=== PATIENT | male | born 1955 | race Caucasian/White ===

== ENCOUNTER 2019-02-25 19:13 | Inpatient (IN) | payer OTHER ==
[2019-02-25 19:58] LABS: BASO % 0.5 % (0-2.0); EOS % 1.5 % (0-4.5); HEMATOCRIT 44.4 % (35.4-49); HEMOGLOBIN 15.5 GM/dl (11.7-16.9); LYMPH % 18.9 % (8-40); MCH 32.3 pg (25.7-33.7); MCHC 34.9 g/dl (32.0-35.9); MEAN CELL VOLUME 92.5 fl (80-96); MEAN PLT VOLUME 9.7 fl (7.5-11.1); MONO % 11.1 % (3.8-10.2); PLATELET COUNT 158 K/MM3 (134-434); RDW 12.8 % (11.9-15.9); WHITE BLOOD COUNT 7.7 K/mm3 (4.0-10.8)
[2019-02-25 20:06] LABS: ALBUMIN 4.4 g/dl (3.4-5.0); CALCIUM 8.9 mg/dl (8.5-10); CREATININE 0.9 mg/dl (0.55-1.3); POTASSIUM 3.5 mmol/L (3.5-5.1); TOT PROT 6.7 g/dl (6.4-8.2)
[2019-02-25 20:07] LABS: ACTIVATED PTT 58.7 SECONDS (25.2-36.5)
[2019-02-25 20:11] LABS: INR 1.27 (0.82-1.09); PROTHROMBIN TIME (PATIENT) 14.1 SEC (10.2-13.0)
[2019-02-25] MEDS ORDERED: dilTIAZem HCL 50 MG/10 ML - 10 ML VIAL IVPUSH ONE ×3 (20:23→21:28)
[2019-02-25] MEDS ORDERED: dilTIAZem HCL 50 MG/10 ML - 10 ML VIAL ONE (20:30)
[2019-02-25] MEDS ORDERED: METOCLOPRAMIDE HCL 10 MG TABLET (FP) PO ONE (22:25)
[2019-02-25] MEDS ORDERED: METOPROLOL TARTRATE 50 MG TABLET (FP) PO ONE (22:26)
[2019-02-25] MEDS ORDERED: METOPROLOL TARTRATE 50 MG TABLET (FP) ONE (22:27)
[2019-02-25] MEDS ORDERED: SODIUM CHLORIDE 1,000 ML IV STA (23:08)
--- NOTE | 2019-02-25 23:31 | PDOC ---
Documentation entered by Puja Grullon SCRIBE, acting as scribe for Lizzy Angel MD. Lizzy Angel MD: This documentation has been prepared by the Yadi dennison Adrianna, SCRIBE, under my direction and personally reviewed by me in its entirety. I confirm that the documentation accurately reflects all work, treatment, procedures, and medical decision making performed by me. History of Present Illness - General Chief Complaint: Syncope/Near Syncope Stated Complaint: SYNCOPAL EPISODE - History of Present Illness Initial Comments: The patient is a 64 year old male, with no significant PMH, who presents to the ED for evaluation s/p syncope. Patient notes he went to the gym ~1.5 hour prior to arrival, and finished a heavy workout without any acute complaints. He drove home, and notes he suddenly felt lightheaded. He braced himself of the counter in the kitchen, but subsequently passed out and fell for the floor. His at bedside, who witnessed the episode, notes he hit the back of his head when he fell. She notes his body was stiff and tense, and the episode lasted for ~5 seconds. denies any shaking during the episode. While in the ED, the patient endorses some lightheadedness, head and neck pain. Patient notes he feels trembly and his pulse is fast. He reports one episode of syncope when he was 16, but denies any episodes since. Denies SOB, recent travel, recent sickness, fever, chills, nausea, vomit, or diarrhea. Allergies: NKA, NKDA Surgical History: None reported Social History: Denies EtOH, tobacco, or illicit drug use PCP: Dr. Griggs Past History - Past Medical History Allergies/Adverse Reactions: Allergies Allergy/AdvReac Type Severity Reaction Status Date / Time No Known Allergies Allergy Unverified 02/25/19 19:14 Home Medications: Ambulatory Orders NK [No Known Home Medication] 02/25/19 COPD: No Other medical history: TB A CHILD - Psycho Social/Smoking Cessation Hx Smoking History: Never smoked Review of Systems - Review of Systems Comments:: GENERAL/CONSTITUTIONAL: No fever or chills. No weakness. HEAD, EYES, EARS, NOSE AND THROAT: No change in vision. No ear pain or discharge. No sore throat. CARDIOVASCULAR: +Elevated pulse. No chest pain or shortness of breath. RESPIRATORY: No cough, wheezing, or hemoptysis. GASTROINTESTINAL: No nausea, vomiting, diarrhea or constipation. GENITOURINARY: No dysuria, frequency, or change in urination. MUSCULOSKELETAL: +Occipital head pain 2/2 fall. +Neck pain 2/2 fall. No joint or muscle swelling. No back pain. SKIN: No rash NEUROLOGIC: +S/p syncope. +LOC. +Lightheaded. +Trembly. No vertigo or change in strength/sensation. ENDOCRINE: No increased thirst. No abnormal weight change. HEMATOLOGIC/LYMPHATIC: No anemia, easy bleeding, or history of blood clots. ALLERGIC/IMMUNOLOGIC: No hives or skin allergy. *Physical Exam - Vital Signs Last Vital Signs Temp Pulse Resp BP Pulse Ox 98.2 F 68 18 92/52 L 98 03/01/19 00:14 03/01/19 00:14 03/01/19 00:14 03/01/19 00:14 02/28/19 21:00 - Physical Exam GENERAL: Awake, alert, and fully oriented, in no acute distress HEAD: +Mild tenderness to palpation at the occiput of the skull. No external signs of trauma EYES: PERRLA, EOMI, sclera anicteric, conjunctiva clear ENT: Auricles normal inspection, hearing grossly normal, nares patent. Moist mucosa NECK: Normal ROM, supple, no lymphadenopathy, JVD, or masses LUNGS: Breath sounds equal, clear to auscultation bilaterally. No wheezes, and no crackles HEART: +irregularly irregular. Normal S1 and S2, no murmurs, rubs or gallops ABDOMEN: Soft, nontender, normoactive bowel sounds. No guarding, no rebound. No masses EXTREMITIES: Normal range of motion, no edema. No erythema or tenderness. DP/PT pulses 2+ and symmetric. Warm and well perfused. NEUROLOGICAL: Moves all extremities. Normal speech, normal gait SKIN: Warm, Dry, normal turgor, no rashes or lesions noted. ED Treatment Course - LABORATORY CBC & Chemistry Diagram: 02/27/19 06:57 02/27/19 06:57 - ADDITIONAL ORDERS Additional order review: 02/25/19 19:42 RBC 4.80 MCV 92.5 MCHC 34.9 RDW 12.8 MPV 9.7 Neutrophils % 68.0 Lymphocytes % 18.9 Monocytes % 11.1 H Eosinophils % 1.5 Basophils % 0.5 - RADIOLOGY Radiology Studies Ordered: Category Date Time Status CERVICAL SPINE CT W/O CONTR [CT] Stat CT Scan 02/25/19 19:[address] WITHOUT CONTRAST [CT] Stat CT Scan 02/25/19 19:48 Completed CHEST X-RAY PORTABLE* [RAD] Stat Radiology 02/25/19 19:40 Completed - Medications Given in the ED: ED Medications Discontinued Medications Generic Name Dose Route Start Last Admin Trade Name Freq PRN Reason Stop Dose Admin Aspirin 81 mg 02/26/19 14:30 02/28/19 09:35 Ecotrin - PO 81 mg DAILY DARWIN Administration Diltiazem HCl 10 mg 02/25/19 20:23 02/25/19 20:43 Cardizem Injection - IVPUSH 02/25/19 20:24 Not Given ONCE ONE Diltiazem HCl 20 mg 02/25/19 20:26 02/25/19 20:39 Cardizem Injection - IVPUSH 02/25/19 20:27 20 mg ONCE ONE Administration Diltiazem HCl 20 mg 02/25/19 21:28 02/25/19 21:33 Cardizem Injection - IVPUSH 02/25/19 21:29 20 mg ONCE ONE Administration Enoxaparin Sodium 75 mg 02/26/19 12:09 02/26/19 12:28 Lovenox - SQ 02/26/19 12:10 75 mg ONCE ONE Administration Enoxaparin Sodium 40 mg 02/27/19 10:00 02/28/19 09:35 Lovenox - SQ 40 mg DAILY DARWIN Administration Heparin Sodium (Porcine) 5,000 unit 02/26/19 10:00 02/26/19 09:05 Heparin - SQ 5,000 unit BID DARWIN Administration Sodium Chloride 1,000 mls @ 1,000 mls/hr 02/25/19 23:08 02/25/19 21:00 Normal Saline - IV 02/26/19 00:07 1,000 mls/hr ASDIR STA Administration Sodium Chloride 1,000 mls @ 60 mls/hr 02/26/19 07:15 02/27/19 10:13 Normal Saline - IV Not Given ASDIR DARWIN Metoclopramide HCl 50 mg 02/25/19 22:25 02/25/19 22:27 Reglan - PO 02/25/19 22:26 Not Given ONCE ONE Metoprolol Succinate 25 mg 02/26/19 11:30 02/26/19 11:42 Toprol Xl - PO 25 mg DAILY DARWIN Administration Metoprolol Succinate 25 mg 02/26/19 12:46 02/26/19 13:06 Toprol Xl - PO 02/26/19 12:47 25 mg ONCE ONE Administration Metoprolol Succinate 50 mg 02/27/19 10:00 02/27/19 10:13 Toprol Xl - PO 50 mg DAILY DARWIN Administration Metoprolol Succinate 25 mg 02/27/19 15:13 02/27/19 16:48 Toprol Xl - PO 02/27/19 15:14 25 mg ONCE STA Administration Metoprolol Succinate 50 mg 02/27/19 22:00 02/28/19 09:35 Toprol Xl - PO 50 mg BID DARWIN Administration Metoprolol Tartrate 50 mg 02/25/19 22:26 02/25/19 22:30 Lopressor - PO 02/25/19 22:27 50 mg ONCE ONE Administration Medical Decision Making - Medical Decision Making 02/25/19 23:02 As noted above, this otherwise healthy 64 y.o.man presents after syncopal episode with lightheadedness but no other significant symptoms. 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
[2019-02-26 00:03] VITALS: BMI 22.1
[2019-02-26] MEDS ORDERED: METOPROLOL TARTRATE 5 MG/5 ML VIAL IVPUSH PRN (01:48)
[2019-02-26] MEDS: SODIUM CHLORIDE 1,000 ML IV SCH (07:41)
[2019-02-26 09:00] LABS: EOS % 0.7 % (0-4.5); HEMATOCRIT 43.1 % (35.4-49); HEMOGLOBIN 14.3 GM/dl (11.7-16.9); LYMPH % 13.4 % (8-40); MCHC 33.2 g/dl (32.0-35.9); MEAN CELL VOLUME 93.2 fl (80-96); MEAN PLT VOLUME 9.4 fl (7.5-11.1); MONO % 12.8 % (3.8-10.2); NEUT % 73.1 % (42.8-82.8); PLATELET COUNT 198 K/MM3 (134-434); RBC 4.63 M/mm3 (4.00-5.60); RDW 12.8 % (11.9-15.9); WHITE BLOOD COUNT 6.6 K/mm3 (4.0-10.8)
--- NOTE | 2019-02-26 09:06 | HP ---
CHIEF COMPLAINT: Syncope PCP: Dr. Griggs HISTORY OF PRESENT ILLNESS: The patient is a 64 year old male, with no significant PMH, who presents to the ED for evaluation s/p syncope. Patient notes he went to the gym 1.5 hour prior to arrival, and finished a heavy workout without any acute complaints. He drove home, and notes he suddenly felt lightheaded. He braced himself of the counter in the kitchen, but subsequently passed out and fell for the floor. His at bedside, who witnessed the episode, notes he hit the back of his head when he fell. She notes his body was stiff and tense, and the episode lasted for 5 seconds. denies any shaking during the episode. While in the ED, the patient endorses some lightheadedness, head and neck pain. Patient notes he feels trembly and his pulse is fast. He reports one episode of syncope when he was 16, but denies any episodes since. 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 No weakness. HEAD, EYES, EARS, NOSE AND THROAT: No change in vision. No ear pain or discharge. No sore throat. CARDIOVASCULAR: irregular Elevated pulse. No chest pain or shortness of breath. RESPIRATORY: No cough, wheezing, or hemoptysis. GASTROINTESTINAL: No nausea, vomiting, diarrhea or constipation. GENITOURINARY: No dysuria, frequency, or change in urination. MUSCULOSKELETAL: Occipital head pain 2/2 fall. Neck pain 2/2 fall. No joint or muscle swelling. No back pain. SKIN: No rash NEUROLOGIC: Denies any lightheadedness or dizziness. No vertigo or change in strength/sensation. ENDOCRINE: No increased thirst. No abnormal weight change. HEMATOLOGIC/LYMPHATIC: No anemia, easy bleeding, or history of blood clots. ALLERGIC/IMMUNOLOGIC: No hives or skin allergy. PHYSICAL EXAMINATION Vital Signs - 24 hr 02/25/19 02/25/19 02/25/19 19:17 19:59 20:30 Temperature 98.1 F Pulse Rate 136 H Pulse Rate [ 133 H 160 H Apical] Respiratory 16 20 Rate Blood Pressure 161/78 Blood Pressure 154/98 129/94 [Arm] O2 Sat by Pulse 99 98 Oximetry (%) 02/25/19 02/25/19 02/25/19 21:20 22:00 23:00 Temperature Pulse Rate Pulse Rate [ 115 H 123 H 107 H Apical] Respiratory 17 15 Rate Blood Pressure Blood Pressure 136/82 141/78 113/83 [Arm] O2 Sat by Pulse 96 Oximetry (%) 02/25/19 02/26/19 02/26/19 23:50 03:14 06:00 Temperature 98.4 F 98.0 F Pulse Rate 79 76 Pulse Rate [ Apical] Respiratory 20 19 19 Rate Blood Pressure 106/67 99/57 L Blood Pressure [Arm] O2 Sat by Pulse Oximetry (%) GENERAL: Awake, alert, and fully oriented, in no acute distress HEAD: +Mild tenderness to palpation at the occiput of the skull. No external signs of trauma EYES: PERRLA, EOMI, sclera anicteric, conjunctiva clear ENT: Auricles normal inspection, hearing grossly normal, nares patent. Moist mucosa NECK: Normal ROM, supple, no lymphadenopathy, JVD, or masses LUNGS: Breath sounds equal, clear to auscultation bilaterally. No wheezes, and no crackles HEART: irregular. Normal S1 and S2, no murmurs, rubs or gallops ABDOMEN: Soft, nontender, normoactive bowel sounds. No guarding, no rebound. No masses EXTREMITIES: Normal range of motion, no edema. No erythema or tenderness. DP/PT pulses 2+ and symmetric. Warm and well perfused. NEUROLOGICAL: Moves all extremities. Normal speech, normal gait SKIN: Warm, Dry, normal turgor, no rashes or lesions noted. Laboratory Results - last 24 hr 02/25/19 02/25/19 02/25/19 19:42 19:42 19:42 WBC 7.7 RBC 4.80 Hgb 15.5 Hct 44.4 MCV 92.5 MCH 32.3 MCHC 34.9 RDW 12.8 Plt Count 158 MPV 9.7 Absolute Neuts (auto) 5.4 Neutrophils % 68.0 Lymphocytes % 18.9 Monocytes % 11.1 H Eosinophils % 1.5 Basophils % 0.5 PT with INR 14.1 H INR 1.27 H PTT (Actin FS) 58.7 H Sodium 137 Potassium 3.5 Chloride 103 Carbon Dioxide 25 Anion Gap 9 BUN 31.0 H Creatinine 0.9 Est GFR (CKD-EPI)AfAm 104.24 Est GFR (CKD-EPI)NonAf 89.94 Random Glucose 153 H Calcium 8.9 Total Bilirubin 1.0 AST 26 ALT 17 Alkaline Phosphatase 48 Creatine Kinase 138 Troponin I Total Protein 6.7 Albumin 4.4 TSH 2.30 02/25/19 02/26/19 02/26/19 20:11 02:00 02:00 WBC RBC Hgb Hct MCV MCH MCHC RDW Plt Count MPV Absolute Neuts (auto) Neutrophils % Lymphocytes % Monocytes % Eosinophils % Basophils % PT with INR INR PTT (Actin FS) Sodium Potassium Chloride Carbon Dioxide Anion Gap BUN Creatinine Est GFR (CKD-EPI)AfAm Est GFR (CKD-EPI)NonAf Random Glucose Calcium Total Bilirubin AST ALT Alkaline Phosphatase Creatine Kinase Troponin I < 0.03 Cancelled 0.02 Total Protein Albumin TSH ASSESSMENT/PLAN: The patient is a 64 year old male, with no significant PMH, who presented to the ED for evaluation s/p syncope. Admitted and being treated for Syncope and new onset A Fib. Syncope --1 episode after he returned home from a heavy gym workout --troponins negative x3 --ECG-Afib rapid HR, PVC, nonsp ST-Ts --Echo-Will be completed tomorrow (Cardiology Aware) --CT Head: Mild volume loss, and ventricular dilation. No masses or lesion, acute infarct or intracranial hemorrhage are identified. No acute pathology --CT Spine: No gross fracture, subluxation or prevertebral soft tissue swelling --CXR-No Acute Pathology --US carotids-To be completed tomorrow --Thyroid studies-WNL --Afebrile, no leukocytosis, UA negative Atrial Fibrillation --New Diagnosis --Start Metoprolol Succ 50mg PO Daily --Start ASA 81mg PO Daily --Continuous Telemetry --Car Dispatcher Following- Dr. Corona --EKG in AM FEN Fluids: PO intake Electrolytes: replete as indicated Nutrition: Low Sodium diet DVT prophylaxis: Lovenox 40mg Daily, SCDs Dispo: continues to require inpatient care. Full code. Family Medical History Family History: Denies, Unremarkable Visit type - Emergency Visit Emergency Visit: Yes ED Registration Date: 02/25/19 Care time: The patient presented to the Emergency Department on the above date and was hospitalized for further evaluation of their emergent condition. - New Patient This patient is new to me today: Yes Date on this admission: 02/26/19 - Critical Care Critical Care patient: No
--- NOTE | 2019-02-26 09:09 | CON.CARD ---
Consult Consult Specialty:: cardio - History of Present Illness Chief Complaint: fainting History of Present Illness: 64 M here with fainting spell. went to gym at 4:30, spent about 60 min exercising. drank about 30 oz of fluids prior to that, throughout the course of the day. 2 cups coffee per his routine. ate normal lunch. towards the end he pushed himself more than usual with vigorous sta bike exercise. got home around 6 am, walked into kitchen where was cooking, felt dizzy/LH and flushing feeling in head. awoke on floor with over him--she reported LOC lasting about 5 seconds. denies palpitations preceding that, or ever. no cp, sob. never dizzy/presyncope/syncope during exercise. one prior episode of syncope when , while watching video showing surgical incision of abdomen for . hadn't eaten normally that day sees dr chang routinely for annual check-ups--no h/o DM or HTN no HPL denies etoh use FH: sister rhythm issues since 40s, ? type. father 40s from [place] myocarditis. no other known cardiac (or unexplained) deaths, or CMP - Alcohol/Substance Use Hx Alcohol Use: No - Smoking History Smoking history: Never smoked Home Medications - Allergies Allergies/Adverse Reactions: Allergies Allergy/AdvReac Type Severity Reaction Status Date / Time No Known Allergies Allergy Unverified 02/25/19 19:14 - Home Medications Home Medications: Ambulatory Orders NK [No Known Home Medication] 02/25/19 Review of Systems - Review of Systems Constitutional: denies: Chills, Fever Eyes: denies: Eye Pain HENT: denies: Nasal Congestion Neck: denies: Stiffness Cardiovascular: denies: Palpitations Respiratory: denies: Orthopnea, PND Gastrointestinal: denies: Diarrhea, Rectal Bleeding Genitourinary: denies: Burning, Hematuria Musculoskeletal: denies: Muscle Pain Integumentary: denies: Rash Neurological: reports: Syncope. denies: Numbness, Seizure Endocrine: denies: Excessive Sweating Hematology/Lymphatic: denies: Excessive Bleeding Vital Signs: Vital Signs Temperature 98.0 F 02/26/19 06:00 Pulse Rate 76 02/26/19 06:00 Respiratory Rate 19 02/26/19 06:00 Blood Pressure 99/57 L 02/26/19 06:00 O2 Sat by Pulse Oximetry (%) 96 02/25/19 21:20 Constitutional: Yes: Well Nourished, No Distress Eyes: No: Sclera Icterus HENT: No: Nasal Congestion Neck: No: Decreased ROM Respiratory: Yes: CTA Bilaterally. No: Accessory Muscle Use, Rales, Wheezes Gastrointestinal: Yes: Normal Bowel Sounds. No: Distention, Hepatomegaly, Palpable Mass, Tenderness Cardiovascular: Yes: Pulse Irregular JVD: No Carotid Bruit: No PMI: Non-Displaced Heart Sounds: Yes: S1, S2. No: Gallop Murmur: No: Systolic Murmur, Diastolic Murmur Musculoskeletal: Yes: Other (No kyphosis) Extremities: No: Cool, Cyanosis Edema: No Peripheral Pulses: 2+ Left Carotid, 2+ Right Carotid, 2+ Left Doralis Pedis, 2+ Right Dorsalis Pedis Integumentary: No: Jaundice Neurological: Yes: Alert, Oriented (x3) Psychiatric: No: Agitated - Other Data Labs, Other Data: CBC, BMP 02/26/19 08:29 INR, PTT INR 1.27 (0.82-1.09) H 02/25/19 19:42 Troponin, BNP 02/25/19 02/26/19 02/26/19 20:11 02:00 02:00 Troponin I < 0.03 Cancelled 0.02 Troponin, BNP 02/25/19 02/26/19 02/26/19 20:11 02:00 02:00 Troponin I < 0.03 Cancelled 0.02 Assessment/Plan ECG: Afib rapid HR, PVC, nonsp ST-Ts (no priors) CXR: clear lungs/pleura tele: AF today ranging 100s-120 bpm syncope: -likely vasovagal event sec to vasodilation post-intense exercise, with suboptimal hydration. prodromal sx's support this as well. pt with known typical vasovagal episode years ago. -prerenal lab picture supportive of this etiology as well -doubt afib itself caused syncope--hemodynamically stable here even with rapid HRs -ECG non-ischemic, trop neg x 2 -echo in AM, tele overnight -f/u CT head (prelim unremarkable, per verbal report from ER) -check orthostatics ? HTN: -bp high initially, ? reactive -currently controlled (receiving metoprolol) afib: -new dx -rapid HR, did not respond to IV diltiazem x 2, good response to metopr tartrate 50 PO overnight--back up to 100s-120 this am. -start metoprolol succinate 50 qd first dose now. -d/w'd pt the risks/benefits of DCCV and rhythm maintenance strategy in asymptomatic, rate-controlled pt--no compelling indication. he wishes to defer for now, and we will reassess for spontaneous conversion to sinus in office within next 3 wks -CHADS VASC 0--no AC. will start aspirin 81. pt understands to f/u with me as we will need to re-consider risks/benefits of NOAC once he turns 65 late this year. -check echo
[2019-02-26 09:20] LABS: CALCIUM 8.5 mg/dl (8.5-10); MAGNESIUM 2.1 mg/dL (1.8-2.4); PHOSPHOROUS 3.2 mg/dl (2.5-4.9); POTASSIUM 4.4 mmol/L (3.5-5.1)
[2019-02-26] MEDS ORDERED: HEPARIN NA (PORCINE) 5,000 UNITS/ML 1ML VIAL SQ SCH (10:00)
[2019-02-26] MEDS ORDERED: metoPROLOL SUCCINATE 25 MG TAB.SR.24H (FP) PO SCH ×2 (11:30→12:46)
[2019-02-26] MEDS ORDERED: ENOXAPARIN NA (PORCINE) 80 MG/0.8 ML DISP.SYRIN SQ SCH (12:00)
[2019-02-26] MEDS ORDERED: ENOXAPARIN NA (PORCINE) 80 MG/0.8 ML DISP.SYRIN SQ ONE (12:09)
[2019-02-26] MEDS ORDERED: metoPROLOL SUCCINATE 25 MG TAB.SR.24H (FP) PO ONE (12:46)
[2019-02-26] MEDS: ASPIRIN COATED 81 MG TABLET.EC PO SCH (15:43)
--- NOTE | 2019-02-26 17:07 | EKG ---
Test Reason : Blood Pressure : / mmHG Vent. Rate : 090 BPM Atrial Rate : 107 BPM P-R Int : 000 ms QRS Dur : 094 ms QT Int : 356 ms P-R-T Axes : 000 007 -20 degrees QTc Int : 435 ms ATRIAL FIBRILLATION WITH PREMATURE VENTRICULAR OR ABERRANTLY CONDUCTED COMPLEXES ANTERIOR INFARCT , AGE UNDETERMINED ABNORMAL ECG WHEN COMPARED WITH ECG OF 25-FEB-2019 19:30, ATRIAL FIBRILLATION HAS REPLACED SINUS RHYTHM VENT. RATE HAS DECREASED BY 55 BPM T WAVE VARIATION Confirmed by MURPHY PEREYRA MD ([id number]) on 02/26/2019 5:07:06 PM Referred By: SREEKANTH RICHEY Confirmed By:MURPHY PEREYRA MD
--- NOTE | 2019-02-26 17:08 | EKG ---
Test Reason : Blood Pressure : / mmHG Vent. Rate : 145 BPM Atrial Rate : 078 BPM P-R Int : 000 ms QRS Dur : 102 ms QT Int : 274 ms P-R-T Axes : 000 039 -81 degrees QTc Int : 425 ms ATRIAL FIBRILLATION WITH RAPID VENTRICULAR RESPONSE AND WITH OCCASIONAL PREMATURE VENTRICULAR COMPLEXES ABNORMAL ECG NO PREVIOUS ECGS AVAILABLE Confirmed by HAFSA WALKER, MURPHY ([id number]) on 02/26/2019 5:08:21 PM Referred By: FRANCISCA SAUCEDO Confirmed By:MURPHY PREEYRA MD
[2019-02-27 07:56] LABS: BASO % 0.6 % (0-2.0); EOS % 2.8 % (0-4.5); HEMATOCRIT 42.9 % (35.4-49); HEMOGLOBIN 14.1 GM/dl (11.7-16.9); LYMPH % 25.6 % (8-40); MCH 31.1 pg (25.7-33.7); MCHC 32.9 g/dl (32.0-35.9); MEAN CELL VOLUME 94.5 fl (80-96); MEAN PLT VOLUME 9.2 fl (7.5-11.1); MONO % 15.6 % (3.8-10.2); NEUT % 55.4 % (42.8-82.8); PLATELET COUNT 193 K/MM3 (134-434); RBC 4.54 M/mm3 (4.00-5.60); RDW 12.8 % (11.9-15.9); WHITE BLOOD COUNT 5.1 K/mm3 (4.0-10.8)
[2019-02-27 08:13] LABS: ACTIVATED PTT 57.1 SECONDS (25.2-36.5)
[2019-02-27 08:17] LABS: INR 1.23 (0.82-1.09); PROTHROMBIN TIME (PATIENT) 13.7 SEC (10.2-13.0)
[2019-02-27 08:44] LABS: ALBUMIN 3.2 g/dl (3.4-5.0); TOT PROT 5.1 g/dl (6.4-8.2)
[2019-02-27] MEDS ORDERED: metoPROLOL SUCCINATE 25 MG TAB.SR.24H (FP) PO SCH (10:00)
--- NOTE | 2019-02-27 10:08 | EKG ---
Test Reason : Blood Pressure : / mmHG Vent. Rate : 086 BPM Atrial Rate : 067 BPM P-R Int : 000 ms QRS Dur : 092 ms QT Int : 384 ms P-R-T Axes : 000 007 -06 degrees QTc Int : 459 ms ATRIAL FIBRILLATION WITH PREMATURE VENTRICULAR OR ABERRANTLY CONDUCTED COMPLEXES ANTERIOR INFARCT (CITED ON OR BEFORE 26-FEB-2019) ABNORMAL ECG WHEN COMPARED WITH ECG OF 26-FEB-2019 11:13, NO SIGNIFICANT CHANGE WAS FOUND Confirmed by MURPHY PEREYRA MD ([id number]) on 02/27/2019 10:08:17 AM Referred By: MICKEY Confirmed By:MURPHY PEREYRA MD
[2019-02-27] MEDS: ENOXAPARIN NA (PORCINE) 40 MG/0.4 ML DISP.SYRIN SQ SCH (10:13)
[2019-02-27] MEDS: SODIUM CHLORIDE 1,000 ML IV SCH (10:13)
[2019-02-27] MEDS: ASPIRIN COATED 81 MG TABLET.EC PO SCH (10:13)
--- NOTE | 2019-02-27 12:48 | PN ---
Documentation entered by Hoa Irwin SCRIBE, acting as scribe for Georgette Garcia NP. Physical Exam: SUBJECTIVE: Patient seen and examined at bedside. Patient states having an irregular heart throughout his adulthood. Denies any chest pain or SOB. OBJECTIVE: Vital Signs Period Temp Pulse Resp BP Sys/Cantor Pulse Ox Last 24 Hr 97.6 F-98.8 F 68-97 17-20 95-123/53-77 95-99 GENERAL: Awake, alert, and fully oriented, in no acute distress. ENT: Auricles normal inspection, hearing grossly normal, nares patent. Moist mucosa LUNGS: Breath sounds equal, clear to auscultation bilaterally. No wheezes, and no crackles HEART: Irregular, S1, S2 ABDOMEN: Soft, nontender, normoactive bowel sounds. No guarding, no rebound. No masses NEUROLOGICAL: Moves all extremities. Normal speech, normal gait SKIN: Warm, Dry, normal turgor, no rashes or lesions noted. Laboratory Results - last 24 hr 02/26/19 02/26/19 02/26/19 08:29 08:29 08:29 WBC RBC Hgb Hct MCV MCH MCHC RDW Plt Count MPV Absolute Neuts (auto) Neutrophils % Lymphocytes % Monocytes % Eosinophils % Basophils % PT with INR INR PTT (Actin FS) Sodium 139 Potassium 4.4 Chloride 107 Carbon Dioxide 24 Anion Gap 8 BUN 27.0 H Creatinine 1.0 Est GFR (CKD-EPI)AfAm 91.78 Est GFR (CKD-EPI)NonAf 79.19 Random Glucose 114 H Hemoglobin A1c % 5.6 Calcium 8.5 Phosphorus 3.2 Magnesium 2.1 Total Bilirubin AST ALT Alkaline Phosphatase Troponin I 0.02 Cancelled Total Protein Albumin Triglycerides 32 Cholesterol 118 Total LDL Cholesterol 47 HDL Cholesterol 65 H TSH 1.44 D 02/27/19 02/27/19 02/27/19 06:57 06:57 06:57 WBC 5.1 RBC 4.54 Hgb 14.1 Hct 42.9 MCV 94.5 MCH 31.1 MCHC 32.9 RDW 12.8 Plt Count 193 MPV 9.2 Absolute Neuts (auto) 2.9 Neutrophils % 55.4 D Lymphocytes % 25.6 D Monocytes % 15.6 H Eosinophils % 2.8 D Basophils % 0.6 D PT with INR 13.7 H INR 1.23 H PTT (Actin FS) 57.1 H Sodium 140 Potassium 4.0 Chloride 108 H Carbon Dioxide 25 Anion Gap 7 L BUN 18.0 Creatinine 1.0 Est GFR (CKD-EPI)AfAm 91.78 Est GFR (CKD-EPI)NonAf 79.19 Random Glucose 107 H Hemoglobin A1c % Calcium 8.0 L Phosphorus Magnesium Total Bilirubin 1.0 AST 20 ALT 18 Alkaline Phosphatase 37 L D Troponin I Total Protein 5.1 L Albumin 3.2 L Triglycerides Cholesterol Total LDL Cholesterol HDL Cholesterol TSH Active Medications Generic Name Dose Route Start Last Admin Trade Name Alice PRN Reason Stop Dose Admin Aspirin 81 mg 02/26/19 14:30 02/27/19 10:13 Ecotrin - PO 81 mg DAILY [facility]WIN Administration Enoxaparin Sodium 40 mg 02/27/19 10:00 02/27/19 10:13 Lovenox - SQ 40 mg DAILY [facility]WIN Administration Metoprolol Succinate 50 mg 02/27/19 10:00 02/27/19 10:13 Toprol Xl - PO 50 mg DAILY [facility]WIN Administration ASSESSMENT/PLAN: The patient is a 64 year-old male, with no significant PMH, who presented to the ED for evaluation s/p syncope. Admitted and being treated for syncope and newly diagnosed afib. Syncope --1 episode after he returned home from a heavy gym workout --troponins negative x3 --ECG: no signs of acute ischemic event --CT head and c-spine: no acute pathology --CXR: unremarkable --US carotids: no hemodynamically significant stenosis --TSH wnl --check orthostatics --Echo today Atrial Fibrillation with RVR --rate still occasionally elevated, up to 140-low 150s with exertion --continue ToprolXL 50mg daily, discuss with cardiology to increase to BID --continue telemetry --[id number] score 0: ASA 81mg only FEN Fluids: PO intake Electrolytes: replete as indicated Nutrition: Low Sodium diet DVT prophylaxis: subq lovenox Dispo: continues to require inpatient care. Full code. Visit type - Emergency Visit Emergency Visit: Yes ED Registration Date: 02/25/19 Care time: The patient presented to the Emergency Department on the above date and was hospitalized for further evaluation of their emergent condition. - New Patient This patient is new to me today: Yes Date on this admission: 02/27/19 - Critical Care Critical Care patient: No Georgette Garcia, SCOTTY: This documentation has been prepared by the Dc dennison Maria, SCRIBE, under my direction and personally reviewed by me in its entirety. I confirm that the documentation accurately reflects all work, treatment, procedures, and medical decision making performed by me.
[2019-02-27] MEDS ORDERED: metoPROLOL SUCCINATE 25 MG TAB.SR.24H (FP) PO STA (15:13)
--- NOTE | 2019-02-27 15:16 | ECHO ---
Version: 1 Name: DANIELLE KIMBROUGH Exam: Adult Echocardiogram Study Date: 02/27/2019, 1:15 PM Age: 64 Years MMode/2D Measurements & Calculations IVSd: 1.15 cm LVIDs: 2.9 cm LVIDd: 3.9 cm LVPWd: 1.05 cm LVOT diam: 1.99 cm Ao root diam: 3.1 cm LA dimension: 2.9 cm Doppler Measurements & Calculations MR max P.6 mmHg Ao max P.3 mmHg Ao V2 max: 125.6 cm/sec PI end-d mary: 100.8 cm/sec TR max mary: 206.7 cm/sec TR max P.2 mmHg Procedure A complete two-dimensional transthoracic echocardiogram was performed (2D, M-mode, Doppler and color flow Doppler). The patient was in atrial fibrillation with controlled ventricular rate during the exam. Left Ventricle The left ventricle is normal in size. Left ventricular systolic function is moderately reduced. Ejec tion Fraction = 35-40%. There is moderate global hypokinesis of the left ventricle. Right Ventricle The right ventricle is grossly normal size. The right ventricular systolic function is normal. Atria The left atrial size is normal. Right atrial size is normal. Mitral Valve There is mild mitral valve thickening. There is mild mitral regurgitation. Tricuspid Valve The tricuspid valve is not well visualized, but is grossly normal. There is mild to moderate tricusp id regurgitation. Aortic Valve There is mild aortic sclerosis.;. No aortic regurgitation is present. Pulmonic Valve The pulmonic valve is not well visualized. Mild pulmonic valvular regurgitation. Great Vessels The aortic root is normal size. Pericardium/Pleura There is no pericardial effusion. Summary Statements The left ventricle is normal in size. Left ventricular systolic function is moderately reduced. Ejection Fraction = 35-40%. There is moderate global hypokinesis of the left ventricle. The right ventricular systolic function is normal. The left atrial size is normal. Right atrial size is normal. There is mild mitral valve thickening. There is mild mitral regurgitation. There is mild to moderate tricuspid regurgitation. There is mild aortic sclerosis.; Mild pulmonic valvular regurgitation. There is no pericardial effusion. Abdirahman Alonso MD 02/27/2019, 3:16 PM Ordering Physician: Kat Luis Performed By: Digna Wilkerson
--- NOTE | 2019-02-27 16:29 | PN ---
Progress Note (short form) - Note Progress Note: s: no chest pain, palps, dizziness, dyspnea Current Medications Aspirin (Ecotrin -) 81 mg PO DAILY [facility] Last Admin: 02/27/19 10:13 Dose: 81 mg Enoxaparin Sodium (Lovenox -) 40 mg SQ DAILY [facility] Last Admin: 02/27/19 10:13 Dose: 40 mg Lisinopril (Prinivil) 5 mg PO DAILY [facility] Metoprolol Succinate (Toprol Xl -) 50 mg PO BID [facility] Vital Signs Period Temp Pulse Resp BP Sys/Cantor Pulse Ox Last 24 Hr 97.6 F-98.8 F 75-102 17-20 95-127/53-79 96-99 Constitutional: Yes: Well Nourished, No Distress Eyes: No: Sclera Icterus HENT: No: Nasal Congestion Neck: No: Decreased ROM Respiratory: Yes: CTA Bilaterally. No: Accessory Muscle Use, Rales, Wheezes Gastrointestinal: Yes: Normal Bowel Sounds. No: Distention, Hepatomegaly, Palpable Mass, Tenderness Cardiovascular: Yes: Pulse Irregular JVD: No Carotid Bruit: No PMI: Non-Displaced Heart Sounds: Yes: S1, S2. No: Gallop Murmur: No: Systolic Murmur, Diastolic Murmur Musculoskeletal: Yes: Other (No kyphosis) Extremities: No: Cool, Cyanosis Edema: No Peripheral Pulses: 2+ Left Carotid, 2+ Right Carotid, 2+ Left Doralis Pedis, 2+ Right Dorsalis Pedis Integumentary: No: Jaundice Neurological: Yes: Alert, Oriented (x3) Psychiatric: No: Agitated Assessment/Plan ECG: Afib rapid HR, PVC, nonsp ST-Ts (no priors) CXR: clear lungs/pleura echo 02/2019 moderately reduced LV function EF 35-40%, mod global hypokinesis of LV, RV nl function, mild MR, mild to mod TR, mild IA tele: AF today 90s-100s, episodes 120-150 syncope: -likely vasovagal event sec to vasodilation post-intense exercise, with suboptimal hydration. prodromal sx's support this as well. pt with known typical vasovagal episode years ago. -prerenal lab picture supportive of this etiology as well -doubt afib itself caused syncope--hemodynamically stable here even with rapid HRs -ECG non-ischemic, trop neg x 2 - orthostatics negative - tele with afib episodes of RVR cardiomyopathy - mod reduced LV function on echo here - may be in setting of tachycardia - rate control as below, inc metoprolol to 50 mg BID - add low dose lisinopril, monitor BP ? HTN: -bp high initially, ? reactive -currently controlled (receiving metoprolol) afib: -new dx - HR improving, episodes of RVR - asymptomatic - inc metoprolol succinate to 50 mg BID - per Dr. Corona: d/w'd pt the risks/benefits of DCCV and rhythm maintenance strategy in asymptomatic, rate-controlled pt--no compelling indication. he wishes to defer for now, and we will reassess for spontaneous conversion to sinus in office within next 3 wks -CHADS VASC 0--no AC. will start aspirin 81. pt understands to f/u with Dr Corona to re-consider risks/benefits of NOAC once he turns 65 late this year
--- NOTE | 2019-02-27 16:59 | HOSP ---
Subjective - Review of Symptoms Events since last encounter: 02/27 Echo: afib during exam; LV moderately reduced, EF 35-40%, moderate global hypokinesis; RV normal; mild MR; mild to moderate TR; mild PI Discussed with Dr. Emerson Increasing ToprolXL to 50mg BID, starting lisinopril 5mg daily Physical Examination Vital Signs: Vital Signs Temperature 97.9 F 02/27/19 14:23 Pulse Rate 84 02/27/19 14:23 Respiratory Rate 18 02/27/19 14:23 Blood Pressure 120/71 02/27/19 14:23 O2 Sat by Pulse Oximetry (%) 97 02/27/19 14:23 Labs: CBC, BMP 02/27/19 06:57 02/27/19 06:57
--- NOTE | 2019-02-28 09:14 | PN ---
Documentation entered by Hoa Irwin SCRIBE, acting as scribe for Georgette Garcia NP. Physical Exam: SUBJECTIVE: Patient seen and examined at bedside. Pt states he had cold like symptoms Jan.30 with a non-productive cough and runny nose. Additional Family History: Father in his 40s of cardiomyopathy suspected secondary to Coxsackie cardiomyopathy. Pt's half-sister had left ventricular arrhythmic problems since her 40s. She is currently on metoprolol and sotolol. OBJECTIVE: Vital Signs Period Temp Pulse Resp BP Sys/Cantor Pulse Ox Last 24 Hr 97.5 F-98.0 F 70-102 18-20 107-131/66-79 97-98 GENERAL: Awake, alert, and fully oriented, in no acute distress. LUNGS: Breath sounds equal, clear to auscultation bilaterally. No wheezes, and no crackles HEART: Irregular, S1, S2 ABDOMEN: Soft, nontender, normoactive bowel sounds. NEUROLOGICAL: Moves all extremities. Normal speech, normal gait SKIN: Warm, dry, normal turgor, no rashes or lesions noted. Laboratory Results - last 24 hr 02/27/19 02/27/19 02/27/19 06:57 06:57 06:57 WBC 5.1 RBC 4.54 Hgb 14.1 Hct 42.9 MCV 94.5 MCH 31.1 MCHC 32.9 RDW 12.8 Plt Count 193 MPV 9.2 Absolute Neuts (auto) 2.9 Neutrophils % 55.4 D Lymphocytes % 25.6 D Monocytes % 15.6 H Eosinophils % 2.8 D Basophils % 0.6 D PT with INR 13.7 H INR 1.23 H PTT (Actin FS) 57.1 H Sodium 140 Potassium 4.0 Chloride 108 H Carbon Dioxide 25 Anion Gap 7 L BUN 18.0 Creatinine 1.0 Est GFR (CKD-EPI)AfAm 91.78 Est GFR (CKD-EPI)NonAf 79.19 Random Glucose 107 H Calcium 8.0 L Total Bilirubin 1.0 AST 20 ALT 18 Alkaline Phosphatase 37 L D Total Protein 5.1 L Albumin 3.2 L Active Medications Generic Name Dose Route Start Last Admin Trade Name Freq PRN Reason Stop Dose Admin Aspirin 81 mg 02/26/19 14:30 02/27/19 10:13 Ecotrin - PO 81 mg DAILY [facility] Administration Enoxaparin Sodium 40 mg 02/27/19 10:00 02/27/19 10:13 Lovenox - SQ 40 mg DAILY [facility] Administration Lisinopril 5 mg 02/28/19 10:00 Prinivil PO DAILY [facility] Metoprolol Succinate 50 mg 02/27/19 22:00 02/27/19 21:15 Toprol Xl - PO 50 mg BID [facility]WIN Administration ASSESSMENT/PLAN: The patient is a 64 year-old male, with no significant PMH, admitted after a syncopal episode, with newly diagnosed atrial fibrillation. Syncope --1 episode after he returned home from a heavy gym workout --troponins negative x3 --ECG: no signs of acute ischemic event --CT head and c-spine: no acute pathology --CXR: unremarkable --US carotids: no hemodynamically significant stenosis --TSH wnl --not orthostatic Systolic heart failure --02/27 Echo: LV systolic function moderately reduced, EF 35-40%, moderate global hypokinesis; RV normal; mild MR; mild to moderate TR; mild PI Atrial Fibrillation with RVR --rate to 150s, increase ToprolXL to 75mg BID and add diltiazem 30mg PO q6h --[id number] score 0 but with reduced EF, started Eliquis 5mg BID --once rate controled (average rate <100bpm) can discharge home with outpatient follow up with Dr. Corona to discuss options (possible DCCV) --continue telemetry FEN Fluids: PO intake Electrolytes: replete as indicated Nutrition: Low Sodium diet DVT prophylaxis: subq lovenox Dispo: continues to require inpatient care. Full code. Visit type - Emergency Visit Emergency Visit: Yes ED Registration Date: 02/25/19 Care time: The patient presented to the Emergency Department on the above date and was hospitalized for further evaluation of their emergent condition. - New Patient This patient is new to me today: No - Critical Care Critical Care patient: No Georgette Garcia NP: This documentation has been prepared by the Dc dennison Maria, SCRIBE, under my direction and personally reviewed by me in its entirety. I confirm that the documentation accurately reflects all work, treatment, procedures, and medical decision making performed by me.
--- NOTE | 2019-02-28 09:26 | EKG ---
Test Reason : Blood Pressure : / mmHG Vent. Rate : 082 BPM Atrial Rate : 131 BPM P-R Int : 000 ms QRS Dur : 094 ms QT Int : 382 ms P-R-T Axes : 000 005 007 degrees QTc Int : 446 ms ATRIAL FIBRILLATION SEPTAL INFARCT (CITED ON OR BEFORE 26-FEB-2019) ABNORMAL ECG WHEN COMPARED WITH ECG OF 27-FEB-2019 05:53, QUESTIONABLE CHANGE IN INITIAL FORCES OF ANTEROSEPTAL LEADS Confirmed by Luis Manuel Kelley MD ([id number]) on 02/28/2019 9:26:30 AM Referred By: Confirmed By:Luis Manuel Kelley MD
[2019-02-28] MEDS: LISINOPRIL 5 MG TABLET (FP) PO SCH (09:35)
[2019-02-28] MEDS: dilTIAZem HCL 30 MG TABLET (FP) PO SCH ×3 (09:35→17:47)
[2019-02-28] MEDS: ASPIRIN COATED 81 MG TABLET.EC PO SCH (09:35)
[2019-02-28] MEDS: ENOXAPARIN NA (PORCINE) 40 MG/0.4 ML DISP.SYRIN SQ SCH (09:35)
[2019-02-28] MEDS: APIXABAN 5 MG TABLET PO SCH ×2 (12:21→21:31)
--- NOTE | 2019-02-28 13:12 | PN ---
Progress Note, Physician Chief Complaint: EF 35-40% noted NOAC added for reduction in LVEF + AF Diltiazem added today for adjunct rate control as having episodes AF w/ RVR Also has palps every time he drinks cold drinks No CP or SOB, feels light headed when has AF - Current Medication List Current Medications: Active Medications Apixaban (Eliquis -) 5 mg PO BID [facility] Last Admin: 02/28/19 12:21 Dose: 5 mg Diltiazem HCl (Cardizem -) 30 mg PO Q6HPO [facility] Last Admin: 02/28/19 12:21 Dose: 30 mg Lisinopril (Prinivil) 5 mg PO DAILY [facility] Last Admin: 02/28/19 09:35 Dose: 5 mg Metoprolol Succinate (Toprol Xl -) 50 mg PO BID [facility] Last Admin: 02/28/19 09:35 Dose: 50 mg - Objective Vital Signs: Vital Signs Temperature 98.6 F 02/28/19 10:00 Pulse Rate 130 H 02/28/19 10:00 Respiratory Rate 16 02/28/19 10:00 Blood Pressure 118/82 02/28/19 10:00 O2 Sat by Pulse Oximetry (%) 97 02/28/19 06:00 Constitutional: Yes: No Distress Cardiovascular: Yes: Pulse Irregular Respiratory: Yes: CTA Bilaterally Gastrointestinal: Yes: Soft (NT) Edema: No Neurological: Yes: Alert, Oriented Labs: CBC, BMP 02/27/19 06:57 02/27/19 06:57 INR, PTT INR 1.23 (0.82-1.09) H 02/27/19 06:57 Laboratory Tests 02/26/19 08:29 TSH 1.44 D - ....Imaging EKG: Image Reviewed Assessment/Plan syncope: -likely vasovagal event sec to vasodilation post-intense exercise, with suboptimal hydration. prodromal sx's support this as well. pt with known typical vasovagal episode years ago. -prerenal lab picture supportive of this etiology as well -doubt afib itself caused syncope--hemodynamically stable here even with rapid HRs -ECG non-ischemic, trop neg x 2 -echo with RF 35-40%, likely due to AF. Doubt ischemic in nature given unlimited ET and no anginal sx -His father had viral cardiomyopathy -Head Ct negative. -check orthostatics HTN: -bp high initially, ? reactive -currently controlled (receiving metoprolol) -No hx of HTN afib: -new dx although possibly paroxysmal given his reported hx of palps particularly after cold beverages (? vagal mediated) -Started on Cardizem for adjunct rate control, titrate Toprol to 75mg BID -d/w'd pt the risks/benefits of DCCV and rhythm maintenance strategy in asymptomatic, rate-controlled pt--no compelling indication. he wishes to defer for now, and we will reassess for spontaneous conversion to sinus in office within next 3 wks -CHADS VASC 0 but with reduced LVEF to range of 35-40%, started on NOAC, no contraindications. -Once rate controlled (average rate < 100bpm), can discharge home w/ outpt f/u Dr. Corona to discuss options (possible DCCV)
[2019-02-28] MEDS ORDERED: metoPROLOL SUCCINATE 25 MG TAB.SR.24H (FP) PO SCH (22:00)
[2019-03-01] MEDS: dilTIAZem HCL 30 MG TABLET (FP) PO SCH ×2 (00:53→06:58)
[2019-03-01 09:38] LABS: CALCIUM 8.7 mg/dl (8.5-10); POTASSIUM 4.2 mmol/L (3.5-5.1)
[2019-03-01] MEDS: APIXABAN 5 MG TABLET PO SCH ×2 (11:17→21:13)
[2019-03-01] MEDS: LISINOPRIL 5 MG TABLET (FP) PO SCH (11:17)
--- NOTE | 2019-03-01 18:05 | PN ---
Progress Note (short form) - Note Progress Note: s: no cp sob dizzy; less palps today Current Medications Generic Name Dose Route Start Last Admin Trade Name Alice PRN Reason Stop Dose Admin Apixaban 5 mg 02/28/19 11:15 03/01/19 11:17 Eliquis - PO 5 mg BID [facility] Administration Lisinopril 5 mg 02/28/19 10:00 03/01/19 11:17 Prinivil PO 5 mg DAILY [facility] Administration Metoprolol Succinate 50 mg 03/01/19 10:17 Toprol Xl - PO BID [facility] Vital Signs Period Temp Pulse Resp BP Sys/Cantor Pulse Ox Last 24 Hr 97.7 F-98.2 F 68-98 18-19 92-112/52-75 96-98 Constitutional: Yes: No Distress Cardiovascular: Yes: Pulse Irregular Respiratory: Yes: CTA Bilaterally Gastrointestinal: Yes: Soft (NT) Edema: No Neurological: Yes: Alert, Oriented no jaundice diaphoresis Labs: CBC, BMP 02/27/19 06:57 03/01/19 09:15 tele: rate controlled af Assessment/Plan syncope: -likely vasovagal event sec to vasodilation post-intense exercise, with suboptimal hydration. prodromal sx's support this as well. pt with known typical vasovagal episode years ago. -prerenal lab picture supportive of this etiology as well -doubt afib itself caused syncope--hemodynamically stable here even with rapid HRs -ECG non-ischemic, trop neg x 2 -echo with RF 35-40%, likely due to AF. Doubt ischemic in nature given unlimited ET and no anginal sx -Head Ct negative. HTN: -bp nl/low with bb afib: -new dx although possibly paroxysmal given his reported hx of palps particularly after cold beverages (? vagal mediated) -Started on Cardizem for adjunct rate control but bp too low to continue and bb also reduced to toprol 50 bid. Tele today shows hr mostly<100. -d/w'd pt the risks/benefits of DCCV and rhythm maintenance strategy in asymptomatic, rate-controlled pt--no compelling indication. he wishes to defer for now, and we will reassess for spontaneous conversion to sinus in office within next 3 wks -CHADS VASC 0 but with reduced LVEF to range of 35-40%, started on NOAC, no contraindications. -would monitor on tele tonight and if rate remains acceptable then plan for dc tomorrow.
--- NOTE | 2019-03-01 18:58 | PN ---
Documentation entered by Hoa Irwin SCRIBE, acting as scribe for Georgette Garcia NP. Physical Exam: SUBJECTIVE: Patient seen and examined OBJECTIVE: Vital Signs Period Temp Pulse Resp BP Sys/Cantor Pulse Ox Last 24 Hr 97.7 F-98.6 F 68-130 16-19 92-118/52-82 95-98 GENERAL: Awake, alert, and fully oriented, in no acute distress. LUNGS: Breath sounds equal, clear to auscultation bilaterally. No wheezes, and no crackles HEART: Irregular, S1, S2 ABDOMEN: Soft, nontender, normoactive bowel sounds. NEUROLOGICAL: Moves all extremities. Normal speech, normal gait SKIN: Warm, dry, normal turgor, no rashes or lesions noted. Active Medications Generic Name Dose Route Start Last Admin Trade Name Freq PRN Reason Stop Dose Admin Apixaban 5 mg 02/28/19 11:15 02/28/19 21:31 Eliquis - PO 5 mg BID [facility] Administration Diltiazem HCl 30 mg 02/28/19 10:00 03/01/19 06:58 Cardizem - PO Not Given Q6HPO [facility] Lisinopril 5 mg 02/28/19 10:00 02/28/19 09:35 Prinivil PO 5 mg DAILY [facility] Administration Metoprolol Succinate 75 mg 02/28/19 22:00 02/28/19 21:31 Toprol Xl - PO 75 mg BID [facility] Administration ASSESSMENT/PLAN: The patient is a 64 year-old male, with no significant PMH, admitted after a syncopal episode, with newly diagnosed atrial fibrillation. Dropped pressures overnight, SBP <90 but rate remains elevated 140s Decrease ToprolXL to 50mg BID, stop diltiazem Syncope --troponins negative x3 --ECG: no signs of acute ischemic event --CT head and c-spine: no acute pathology --CXR: unremarkable --US carotids: no hemodynamically significant stenosis --TSH wnl --not orthostatic here but syncope occurred after vigorous workout and less than optimal hydration Systolic heart failure --02/27 Echo: LV systolic function moderately reduced, EF 35-40%, moderate global hypokinesis; RV normal; mild MR; mild to moderate TR; mild PI Atrial Fibrillation with RVR --overnight BP dropped to 90s systolic-->diltiazem held and ToprolXL lowered to 50mg BID today --rate today is generally <100 --[id number] score 0 but with reduced EF, continue Eliquis 5mg BID --if rate continues to be generally <100bpm, can discharge home tomorrow with outpatient follow up with Dr. Corona to discuss options (possible DCCV) --continue telemetry FEN Fluids: PO intake Electrolytes: replete as indicated Nutrition: Low Sodium diet DVT prophylaxis: subq lovenox Dispo: continues to require inpatient care. Full code. Visit type - Emergency Visit Emergency Visit: Yes ED Registration Date: 02/25/19 Care time: The patient presented to the Emergency Department on the above date and was hospitalized for further evaluation of their emergent condition. - New Patient This patient is new to me today: No - Critical Care Critical Care patient: No Georgette Garcia, POND SUPERVISOR: This documentation has been prepared by the Dc dennison Maria, SCRIBE, under my direction and personally reviewed by me in its entirety. I confirm that the documentation accurately reflects all work, treatment, procedures, and medical decision making performed by me.
[2019-03-02] MEDS: LISINOPRIL 5 MG TABLET (FP) PO SCH ×2 (10:52→10:56)
[2019-03-02] MEDS: APIXABAN 5 MG TABLET PO SCH ×2 (10:53→21:17)
--- NOTE | 2019-03-02 11:21 | PN ---
Physical Exam: SUBJECTIVE: Patient seen and examined at bedside. This morning having a BM and became lightheaded (HR 162 on telemetry). OBJECTIVE: Vital Signs Period Temp Pulse Resp BP Sys/Cantor Pulse Ox Last 24 Hr 97.6 F-98.2 F 82-98 18-18 102-108/64-71 94-98 GENERAL: Awake, alert, and fully oriented, in no acute distress. LUNGS: Breath sounds equal, clear to auscultation bilaterally. No wheezes, and no crackles HEART: Irregular, S1, S2 ABDOMEN: Soft, nontender, normoactive bowel sounds. NEUROLOGICAL: Moves all extremities. Normal speech, normal gait SKIN: Warm, dry, normal turgor, no rashes or lesions noted. Active Medications Generic Name Dose Route Start Last Admin Trade Name Freq PRN Reason Stop Dose Admin Apixaban 5 mg 02/28/19 11:15 03/02/19 10:53 Eliquis - PO 5 mg BID DARWIN Administration Diltiazem HCl 30 mg 03/02/19 12:00 03/02/19 11:02 Cardizem - PO 30 mg Q6HPO DARWIN Administration ASSESSMENT/PLAN: The patient is a 64 year-old male, with no significant PMH, admitted after a syncopal episode, with newly diagnosed atrial fibrillation. Atrial Fibrillation with RVR --BP remains on low side; HR 70-80s overnight, 140s this morning, then having BM this morning rate went to 162 and he felt lightheaded --discussed with cardiac team; stop ToprolXL, start cardizem 30mg q6h; also stop lisinopril due to low BP --[id number] score 0 but with reduced EF, continue Eliquis 5mg BID --cardioversion in near term under consideration --continue telemetry Syncope --troponins negative x3 --ECG: no signs of acute ischemic event --CT head and c-spine: no acute pathology --CXR: unremarkable --US carotids: no hemodynamically significant stenosis --TSH wnl --not orthostatic here but syncope occurred after vigorous workout and less than optimal hydration Systolic heart failure --02/27 Echo: LV systolic function moderately reduced, EF 35-40%, moderate global hypokinesis; RV normal; mild MR; mild to moderate TR; mild PI FEN Fluids: PO intake Electrolytes: replete as indicated Nutrition: Low Sodium diet DVT prophylaxis: on Eliquis Dispo: continues to require inpatient care. Full code. Visit type - Emergency Visit Emergency Visit: Yes ED Registration Date: 02/25/19 Care time: The patient presented to the Emergency Department on the above date and was hospitalized for further evaluation of their emergent condition. - New Patient This patient is new to me today: No - Critical Care Critical Care patient: No
[2019-03-02] MEDS ORDERED: dilTIAZem HCL 30 MG TABLET (FP) PO SCH (12:00)
[2019-03-02] MEDS: dilTIAZem HCL 30 MG TABLET (FP) PO SCH ×3 (15:14→23:54)
--- NOTE | 2019-03-02 15:25 | PN ---
Progress Note (short form) - Note Progress Note: s: no cp sob dizzy; occasional palps Current Medications Apixaban (Eliquis -) 5 mg PO BID [facility] Last Admin: 03/02/19 10:53 Dose: 5 mg Diltiazem HCl (Cardizem -) 60 mg PO Q6HPO [facility] Last Admin: 03/02/19 15:14 Dose: 60 mg Vital Signs Period Temp Pulse Resp BP Sys/Cantor Pulse Ox Last 24 Hr 97.5 F-97.9 F 81-88 18-18 90-107/64-70 94-98 Constitutional: Yes: No Distress Cardiovascular: Yes: Pulse Irregular Respiratory: Yes: CTA Bilaterally Gastrointestinal: Yes: Soft (NT) Edema: No Neurological: Yes: Alert, Oriented no jaundice diaphoresis tele: rate controlled af, episodes RVR 150s-160s when active and when had BM Assessment/Plan syncope: -likely vasovagal event sec to vasodilation post-intense exercise, with suboptimal hydration. prodromal sx's support this as well. pt with known typical vasovagal episode years ago. -prerenal lab picture supportive of this etiology as well -doubt afib itself caused syncope--hemodynamically stable here even with rapid HRs -ECG non-ischemic, trop neg x 2 -echo with RF 35-40%, likely due to AF. Doubt ischemic in nature given unlimited ET and no anginal sx -Head Ct negative HTN: -has had low BPs on lisinopril, metoprolol, dilt - metoprolol and lisinopril dc'ed, cont dilt for rate control afib: -new dx although possibly paroxysmal given his reported hx of palps particularly after cold beverages (? vagal mediated) -Started on Cardizem for adjunct rate control but bp too low to continue and bb also reduced to toprol 50 bid. Had low bps on these meds - given continued episodes of RVR, dc'ed metoprolol and lisinopril, continue diltiazem and uptitrate as tolerated - plan for outpatient cardioversion early next week - CHADS VASC 0 but with reduced LVEF to range of 35-40%, started on NOAC, no contraindications.
[2019-03-03] MEDS: dilTIAZem HCL 30 MG TABLET (FP) PO SCH (06:14)
[2019-03-03] MEDS: APIXABAN 5 MG TABLET PO SCH (10:06)
[2019-03-03 14:14] VITALS: BP 108/65; PULSE 58; TEMP 98
--- NOTE | 2019-03-03 16:22 | DS ---
Physical Exam: SUBJECTIVE: Patient seen and examined. OBJECTIVE: Vital Signs Period Temp Pulse Resp BP Sys/Cantor Pulse Ox Last 24 Hr 98.0 F-98.3 F 58-95 18-19 89-114/53-70 96-96 PHYSICAL EXAM GENERAL: Awake, alert, and fully oriented, in no acute distress. LUNGS: Breath sounds equal, clear to auscultation bilaterally. No wheezes, and no crackles HEART: Irregular, S1, S2 ABDOMEN: Soft, nontender, normoactive bowel sounds. NEUROLOGICAL: Moves all extremities. Normal speech, normal gait SKIN: Warm, dry, normal turgor, no rashes or lesions noted. LABS CBCD WBC 5.1 K/mm3 (4.0-10.8) 02/27/19 06:57 RBC 4.54 M/mm3 (4.00-5.60) 02/27/19 06:57 Hgb 14.1 GM/dl (11.7-16.9) 02/27/19 06:57 Hct 42.9 % (35.4-49) 02/27/19 06:57 MCV 94.5 fl (80-96) 02/27/19 06:57 MCHC 32.9 g/dl (32.0-35.9) 02/27/19 06:57 RDW 12.8 % (11.9-15.9) 02/27/19 06:57 Plt Count 193 K/MM3 (134-434) 02/27/19 06:57 MPV 9.2 fl (7.5-11.1) 02/27/19 06:57 CMP Sodium 138 mmol/L (136-145) 03/01/19 09:15 Potassium 4.2 mmol/L (3.5-5.1) 03/01/19 09:15 Chloride 105 mmol/L (98-107) 03/01/19 09:15 Carbon Dioxide 29 mmol/L (21-32) 03/01/19 09:15 Anion Gap 4 MMOL/L (8-16) L 03/01/19 09:15 BUN 21.0 mg/dl (7-18) H 03/01/19 09:15 Creatinine 1.0 mg/dl (0.55-1.3) 03/01/19 09:15 Calcium 8.7 mg/dl (8.5-10) 03/01/19 09:15 Total Bilirubin 1.0 mg/dl (0.2-1) 02/27/19 06:57 AST 20 U/L (15-37) 02/27/19 06:57 ALT 18 U/L (13-61) 02/27/19 06:57 Alkaline Phosphatase 37 U/L (45-117) L D 02/27/19 06:57 Total Protein 5.1 g/dl (6.4-8.2) L 02/27/19 06:57 Albumin 3.2 g/dl (3.4-5.0) L 02/27/19 06:57 HOSPITAL COURSE: Date of Admission:02/25/19 Date of Discharge: 03/03/19 Pre hospital course The patient is a 64 year old male, with no significant PMH, who presents to the ED for evaluation s/p syncope. Patient notes he went to the gym 1.5 hour prior to arrival, and finished a heavy workout without any acute complaints. He drove home, and notes he suddenly felt lightheaded. He braced himself of the counter in the kitchen, but subsequently passed out and fell for the floor. His at bedside, who witnessed the episode, notes he hit the back of his head when he fell. She notes his body was stiff and tense, and the episode lasted for 5 seconds. denies any shaking during the episode. While in the ED, the patient endorses some lightheadedness, head and neck pain. Patient notes he feels trembly and his pulse is fast. He reports one episode of syncope when he was 16, but denies any episodes since. ER course (1) Troponin -Neg (2) EKG: SVT r/o Afib (3) CXR-Negative (4) Cadizem 20mg IV Push x2 Subsequent hospital course The patient is a 64 year-old male, with no significant PMH, admitted after a syncopal episode, with newly diagnosed atrial fibrillation. Atrial Fibrillation with RVR --rate difficult to control; initially treated with ToprolXL but rate remained elevated with exertion (160s); switched to cardizem with some improvement --lisinopril started but dc'd due to low BP --[id number] score 0 but with reduced EF, started on Eliquis 5mg BID --plan is for cardioversion within a few days of discharge Systolic heart failure --02/27 Echo: LV systolic function moderately reduced, EF 35-40%, moderate global hypokinesis; RV normal; mild MR; mild to moderate TR; mild PI Syncope --troponins negative x3 --ECG: no signs of acute ischemic event --CT head and c-spine: no acute pathology --CXR: unremarkable --US carotids: no hemodynamically significant stenosis --TSH wnl --not orthostatic here but syncope occurred after vigorous workout and less than optimal hydration Minutes to complete discharge: 35 Discharge Summary Problems reviewed: Yes Reason For Visit: SYNCOPAL EPISODE Current Active Problems New onset atrial fibrillation (Acute) Syncope (Acute) Condition: Stable - Instructions Diet, Activity, Other Instructions: Two prescriptions have been sent to your pharmacy, one for Eliquis and one for Carvedilol/diltiazem ER. Take these medications as directed. Please call Dr. Corona's office on Wednesday to make arrangements for a cardioversion procedure next week in [place]. Do not engage in any type of exercise until otherwise instructed by Dr. Corona. Return to the emergency department for any new or worsening symptoms. Referrals: Nikolai Griggs MD [Primary Care Provider] - Koko Corona MD [Staff Physician] - Disposition: HOME - Home Medications Comprehensive Discharge Medication List: Ambulatory Orders Apixaban [Eliquis -] 5 mg PO BID #60 tablet 03/03/19 Diltiazem Cd [Cardizem Cd -] 240 mg PO DAILY #30 cap.[id number] 03/03/19 This patient is new to me today: No Emergency Visit: Yes ED Registration Date: 02/25/19 Care time: The patient presented to the Emergency Department on the above date and was hospitalized for further evaluation of their emergent condition. Critical Care patient: No - Discharge Referral Referred to [facility] Med P.C.: No
--- NOTE | 2019-03-03 16:47 | PN ---
Progress Note (short form) - Note Progress Note: s: no cp sob dizzy palps Current Medications Generic Name Dose Route Start Last Admin Trade Name Alice PRN Reason Stop Dose Admin Apixaban 5 mg 02/28/19 11:15 03/03/19 10:06 Eliquis - PO 5 mg BID DARWIN Administration Diltiazem HCl 240 mg 03/03/19 12:00 03/03/19 12:17 Cardizem Cd - PO 240 mg DAILY DARWIN Administration Vital Signs Period Temp Pulse Resp BP Sys/Cantor Pulse Ox Last 24 Hr 98.0 F-98.3 F 58-95 18-19 89-114/53-70 96-96 Constitutional: Yes: No Distress Cardiovascular: Yes: Pulse Irregular Respiratory: Yes: CTA Bilaterally Gastrointestinal: Yes: Soft (NT) Edema: No Neurological: Yes: Alert, Oriented no jaundice diaphoresis CBC, BMP 02/27/19 06:57 03/01/19 09:15 tele: hr <100 at rest, mild rvr with activity Assessment/Plan syncope: -likely vasovagal event sec to vasodilation post-intense exercise, with suboptimal hydration. prodromal sx's support this as well. pt with known typical vasovagal episode years ago. -prerenal lab picture supportive of this etiology as well -doubt afib itself caused syncope--hemodynamically stable here even with rapid HRs -ECG non-ischemic, trop neg x 2 -echo with RF 35-40%, likely due to AF. Doubt ischemic in nature given unlimited ET and no anginal sx -Head Ct negative. HTN: -bp nl/low with cbb afib: -new dx although possibly paroxysmal given his reported hx of palps particularly after cold beverages (? vagal mediated) -cont dilt 240 qd. rate is controlled at rest with mild rvr with activity but pt has no sxs. Ok for dc today and pt will have outpt dccv this week. -CHADS VASC 0 but with reduced LVEF to range of 35-40%, started on NOAC, no contraindications.
== END 2019-03-03 17:42 | disposition home or self-care (01) | DRG 312 ==
LOC: FER 19:13 → FM/S 23:26
PROVIDERS: ADMIT Internal Medicine; ATTEND Nurse Practitioner Acute Care
DX: R55 Syncope and collapse (principal); I50.20 Unspecified systolic (congestive) heart failure; I42.8 Other cardiomyopathies; I48.0 Paroxysmal atrial fibrillation
CPT/HCPCS: 36415; 70450-TC; 71045-TC-FY; 72125-TC; 80048; 80053; 80061; 82550; 83036; 83735; 84100; 84443; 84484; 85025; 85610; 85730; 93005; 93306-TC; 93880-TC; 99285-25; J1644; J7030